=== PATIENT | female | born 1960 | race Caucasian/White ===

== ENCOUNTER → 2020-07-13 | Outpatient (CLI) | payer BC ==
[2016-11-18 01:00] VITALS: BP 162/89
--- NOTE | 2020-07-13 15:38 | RAD ---
THYROID ULTRASOUND History: Reason: ANTERIOR NECK FULLNESS / Spl. Instructions: / History: Comparison: None. Technique: Multiple grayscale and color Doppler images of the thyroid gland were obtained. Findings: Right thyroid lobe: 3.5 and 1.2 x 1.3 cm. Heterogeneous echotexture. Left thyroid lobe: 2.7 x 1 0.8 x 1.0 cm. Heterogeneous echotexture. Isthmus: 0.4 cm. Numerous bilateral thyroid nodules. [place] samples included below: -Right mid thyroid solid and cystic nodule measures 0.6 x 0.6 x 0.6 cm. TI-RADS 3. -Right isthmus solid hypoechoic nodule measures 0.7 x 0.8 x 0.47 m. TI-RADS 4. Left isthmus solid hypoechoic nodule measures 0.5 x 0.4 x 0.37 m. ACR Thyroid Imaging, Reporting And Data System (TI-RADS): White Paper Of The ACR TI-RADS Committee. Journal of the [employer], volume 14, issue 5, pages 587-595 (February 2017). IMPRESSION: 1. Enlarged heterogeneous thyroid, may indicate nonspecific thyroiditis. Recommend correlation with thyroid lab values. 2. TI-RADS 4 isthmus and TI-RADS 3 right thyroid nodules. Recommend ultrasound follow-up. Electronically signed by: John Locke DO (07/13/2020 3:34 PM) [id number]
== END ==
LOC: US 13:05
PROVIDERS: ATTEND Physician Assistant Medical
DX: E04.2 Nontoxic multinodular goiter (principal); R22.1 Localized swelling, mass and lump, neck
CPT/HCPCS: 76536